=== PATIENT | female | born 2000 | race Two or more races ===

== ENCOUNTER 2019-11-28 00:26 | Emergency (ER) | payer BC, OTHER | END 2019-11-28 01:05 | disposition left against medical advice (07) | LOC: ER 00:26 | DX: Z53.29 Procedure and treatment not carried out because of patient's decision for other reasons (principal); R07.81 Pleurodynia; M79.641 Pain in right hand; M79.642 Pain in left hand ==

== ENCOUNTER 2019-11-28 19:45 | Emergency (ER) | payer BC, OTHER ==
[2019-11-28] MEDS ORDERED: ONDANSETRON HCL INJ/PF 4 MG/2 ML SDV IV ONE (20:40)
[2019-11-28] MEDS ORDERED: NORMAL SALINE 1000 ML 1,000 ML IV ONE ×2 (20:40→22:53)
[2019-11-28] MEDS ORDERED: FENTANYL CITRATE INJ/PF 100 MCG/2 ML AMPUL IV ONE ×2 (20:40→22:53)
[2019-11-28 20:45] LABS: ALBUMIN 3.7 g/dL (3.5-5.0); ALKALINE PHOSPHATASE 89 U/L (38-126); ANION GAP 13 (5-19); ASPARTATE AMINO TRANSFERASE 14 U/L (14-36); BILIRUBIN,DIRECT 0.1 mg/dL (0.0-0.4); BILIRUBIN,TOTAL 0.9 mg/dL (0.2-1.3); BLOOD UREA NITROGEN 14 mg/dL (7-20); CALCIUM 9.6 mg/dL (8.4-10.2); CARBON DIOXIDE 25 mmol/L (22-30); CHLORIDE 96 mmol/L (98-107); GLUCOSE 104 mg/dL (75-110); POTASSIUM 3.7 mmol/L (3.6-5.0)
[2019-11-28 20:47] LABS: HEMATOCRIT 36.5 % (36.0-47.0); HEMOGLOBIN 12.2 g/dL (12.0-15.5); MEAN CORPUSCULAR HEMOGLOBIN 28.1 pg (27.0-33.4); MEAN CORPUSCULAR HGB CONC 33.4 g/dL (32.0-36.0); MEAN CORPUSCULAR VOLUME 84 fl (80-97); PLATELET COUNT 650 10^3/uL (150-450); RED BLOOD COUNT 4.34 10^6/uL (3.72-5.28); RED CELL DISTRIBUTION WIDTH 16.4 % (11.5-14.0); WHITE BLOOD COUNT 20.6 10^3/uL (4.0-10.5)
--- NOTE | 2019-11-28 20:49 | ER Document Report ---
ED GI/ - General Chief Complaint: Abdominal Pain Stated Complaint: ABDOMINAL PAIN Time Seen by Provider: 11/28/19 20:33 Primary Care Provider: LESLEE RM MD [Primary Care Provider] - Follow up as needed Notes: CHIEF COMPLAINT: Abdominal pain and vomiting HPI: 19-year-old female with history of Crohn's who is on Remicade presenting for abdominal pain with vomiting. Patient states it started with the vomiting episodes yesterday which have continued through today. Began having right upper quadrant abdominal pain under the ribs and in the flank region yesterday as well that has been constant. Also complaining of left lower quadrant abdominal pain. Patient states with her Crohn's she normally has discomfort in the lower abdomen not in the upper abdomen. No shortness of breath but hurts in the right upper quadrant region when she takes a deep breath in. Has not had a cough or recent fever. Does complain of some discomfort with urination. No definitive fevers at home ROS: See HPI - all other systems were reviewed and are otherwise negative Constitutional: no fever Eyes: no drainage, no blurred vision ENT: no runny nose, no sore throat Cardiovascular: + chest pain Resp: no SOB, no cough GI: + vomiting, no diarrhea, + abdominal pain : + dysuria Integumentary: no rash Allergy: no hives Musculoskeletal: no extremity pain or swelling Neurological: no numbness/tingling, no weakness MEDICATIONS: I agree with the patient medications as charted by the RN. ALLERGIES: I agree with the allergies as charted by the RN. PAST MEDICAL HISTORY/PAST SURGICAL HISTORY: Reviewed and agree as charted by RN. SOCIAL HISTORY: Reviewed and agree as charted by RN. FAMILY HISTORY: No significant familial comorbid conditions directly related to patient complaint EXAM: Reviewed vital signs as charted by RN. CONSTITUTIONAL: Alert and oriented and responds appropriately to questions. Well-appearing; well-nourished appears moderately uncomfortable HEAD: Normocephalic; atraumatic EYES: PERRL; Conjunctivae clear, sclerae non-icteric ENT: normal nose; no rhinorrhea; moist mucous membranes; pharynx without lesions noted, no uvula edema or deviation, no tonsillar hypertrophy, phonation normal NECK: Supple without meningismus; non-tender; no cervical lymphadenopathy, no masses CARD: RRR; no murmurs, no clicks, no rubs, no gallops; symmetric distal pulses RESP: Normal chest excursion without splinting or tachypnea; breath sounds clear and equal bilaterally; no wheezes, no rhonchi, no rales, pulse oximetry 99% on room air not hypoxic ABD/GI: Normal bowel sounds; non-distended; soft, moderate tenderness in the right upper quadrant and left lower quadrant on palpation with guarding, no rebo und, no palpable organomegaly or masses. BACK: The back appears normal and is non-tender to palpation, there is mild right CVA tenderness EXT: Normal ROM in all joints; non-tender to palpation; no cyanosis, no effusions, no edema SKIN: Normal color for age and race; warm; dry; good turgor; no acute lesions noted NEURO: Moves all extremities equally; Motor and sensory function intact PSYCH: The patient's mood and manner are appropriate. Grooming and personal hygiene are appropriate. MDM: 19-year-old female with Crohn's with vomiting right upper quadrant pain also with left lower quadrant pain. Actively vomiting in the ER appears moderately uncomfortable. Initial screening labs were obtained by nursing lab lactic given her Remicade use. Will treat patient's pain dehydration and vomi ting. She will need CT imaging to evaluate for acute Crohn's flare, cholecystitis, other intra-abdominal surgical or infectious pathologies TRAVEL OUTSIDE OF THE [place] IN LAST 30 DAYS: No - Related Data Allergies/Adverse Reactions: No Known Allergies Allergy (Unverified 02/07/15 15:56) Past Medical History - Social History Smoking Status: Never Smoker Frequency of alcohol use: None Drug Abuse: None Family History: None Patient has homicidal ideation: No - Immunizations Immunizations up to date: Yes Hx Diphtheria, Pertussis, Tetanus Vaccination: Yes Physical Exam - Vital signs Vitals: Temp 98.1 F 11/28/19 19:55 Course - Re-evaluation Re-evalutation: 11/28/19 22:53 I received a call from the reading radiologist patient with loculated fluid throughout the lower abdomen cannot definitively see the appendix to rule out an appendiceal rupture but may be gynecologic as well. Multiple loculated areas of fluid with some possible air trapping. Discussed with the patient she is n.p.o. have placed a call to Dr. Ray surgery to discuss patient. [facility] for her Crohn's 11/28/19 22:[address] Gillis, Attending 11/28/19 23:[address] Ray the surgicalist. He is reviewing the CT and does not see definitive appendicitis. 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 Dias as patient will likely need transfer to a center where they take care of Crohn's disease as they do not do that here. Patient will likely need transfer to [facility] as that is likely where her paper machine supervisor is. I will attempt to call Dr. Dias initially. 11/28/19 23:35 2nd call out to HIRO Breaux for patient. if no call back will call medicine service at [facility]. 11/28/19 23:45 Patient is now febrile. Will give Tylenol for fever. Will give Zosyn as well given the question of intra-abdominal infection issues although the surgical list here believes that this is related to her Crohn's 11/28/19 23:47 have not yet heard from Dr. Dias, spoke with HIRO Umanzor. discussed labs/CT findings. Can admit to the hospitalist service down at [facility] and they will consult on the patient 11/29/19 00:[address] Dias, he indicates that Zosyn is a good choice for the patient and they will anticipate consult from the hospitalist service at [facility] when it arrives to evaluate the patient further 11/29/19 00:[address] Charlie García, Hospitalist at [facility]. Case, labs, CT imaging, vital signs were discussed. Patient accepted to PCU bed under Dr. Wilfredo Trimble. - Vital Signs Vital signs: Temp Pulse Resp BP Pulse Ox 102.8 F H 119 H 20 129/69 H 100 11/28/19 23:46 11/28/19 23:46 11/28/19 23:46 11/28/19 23:46 11/28/19 23:46 - Laboratory Result Diagrams: 11/28/19 19:48 11/28/19 19:48 Laboratory results interpreted by me: 11/28/19 11/28/19 11/28/19 19:48 19:48 20:50 WBC 20.6 H RDW 16.4 H Plt Count 650 H Seg Neuts % (Manual) 90 H Lymphocytes % (Manual) 5 L Monocytes % (Manual) 0 L Abs Neuts (Manual) 19.6 H Abs Monocytes (Manual) 0.0 L Sodium 133.6 L Chloride 96 L Lipase 17.2 L Urine Protein 100 H Urine Ketones 80 H Urine Bilirubin SMALL H Ur Leukocyte Esterase MODERATE H Discharge - Discharge Clinical Impression: Intra-abdominal abscess Fever Qualifiers: Fever type: unspecified Qualified Code(s): R50.9 - Fever, unspecified Exacerbation of Crohn's disease Qualifiers: Digestive disease complication type: with abscess Qualified Code(s): K50.914 - Crohn's disease, unspecified, with abscess Condition: Fair Disposition: [facility] Referrals: LESLEE RM MD [Primary Care Provider] - Follow up as needed
[2019-11-28 21:17] LABS: APPEARANCE,URINE CLOUDY; BILIRUBIN,URINE SMALL (NEGATIVE); COLOR,URINE AMBER; GLUCOSE, URINE NEGATIVE (NEGATIVE); KETONES,URINE 80 mg/dL (NEGATIVE); LEUKOCYTE ESTERASE,URINE MODERATE (NEGATIVE); NITRITE,URINE NEGATIVE (NEGATIVE); PROTEIN,URINE 100 mg/dL (NEGATIVE); URINE SPECIFIC GRAVITY 1.034; UROBILINOGEN,URINE NEGATIVE mg/dL (<2.0)
[2019-11-28 21:33] LABS: BAND NEUTROPHILS % (MANUAL) 5 % (3-5); BASOPHILS % (MANUAL) 0 % (0-2); EOSINOPHILS % (MANUAL) 0 % (0-6); LYMPHOCYTES % (MANUAL) 5 % (13-45); MONOCYTES % (MANUAL) 0 % (3-13); SEGMENTED NEUTROPHILS % (MAN) 90 % (42-78); TOTAL CELLS COUNTED 100
[2019-11-28 21:35] LABS: ANISOCYTOSIS 1+; PLATELET COMMENT INCREASED
[2019-11-28 21:39] LABS: SCHISTOCYTES SLIGHT
[2019-11-28] MEDS ORDERED: CEFTRIAXONE 1 GM/D5W RTU 1 GM/50 ML RTUPB IV ONE (21:58)
--- NOTE | 2019-11-28 22:38 | RADIOLOGY REPORT (SQ) ---
EXAM DESCRIPTION: CT ABDOMEN PELVIS WITH IV CONTRAST COMPLETED DATE/TME: 11/28/2019 20:40 CLINICAL HISTORY: 19 years, Female, ruq llq pain COMPARISON: None. TECHNIQUE: 564 Images stored on PACS. All CT scanners at this facility use dose modulation, iterative reconstruction, and/or weight based dosing when appropriate to reduce radiation dose to as low as reasonably achievable (ALARA). [facility]: Dose Right [facility]: CareDose [facility]: Dose Right [facility]: Teradose 4D [facility]: [employer] LIMITATIONS: None. FINDINGS: Limited evaluation of the lung bases is unremarkable. Osseous structures are grossly intact. The liver, spleen, adrenal glands, pancreas, kidneys are unremarkable. The gallbladder is present. A normal appendix is not present. Near the base of the cecum there is a poorly defined area of increased soft tissue density, inflammation and phlegmon which extends into the pelvis. Complex, loculated fluid collections in the pelvis containing internal air bubbles are suspicious for areas of loculated abscess. Adjacent thick-walled loops of large and small bowel are present. Urinary bladder is not distended however there is urinary bladder wall thickening, likely reactive. IMPRESSION: Severe inflammatory change and phlegmon in the pelvis with poorly defined complex fluid collections worrisome for areas of abscess formation. There are adjacent, thick-walled loops of both large and small bowel as well as diffuse wall thickening of the urinary bladder. A normal appendix is not present. Findings could reflect appendiceal rupture with associated inflammation and abscess formation. However, other etiologies including gynecologic abnormalities such as ruptured complex cyst formation with abscess, and/or tubo-ovarian abscess formation with inflammation are also considered. In addition, given the degree of bowel wall thickening, inflammatory bowel disease with subsequent abscess formation is another possibility TECHNICAL DOCUMENTATION: Quality ID # [id number]: Final reports with documentation of one or more dose reduction techniques (e.g., Automated exposure control, adjustment of the mA and/or kV according to patient size, use of iterative reconstruction technique) copyright 2011 [employer] All Rights Reserved
--- NOTE | 2019-11-28 22:57 | RADIOLOGY REPORT (SQ) ---
EXAM DESCRIPTION: XR CHEST 1 VIEW COMPLETED DATE/TME: 11/28/2019 20:50 CLINICAL HISTORY: 19 years, Female, right rib pain COMPARISON: None. NUMBER OF VIEWS: 1 TECHNIQUE: Portable chest LIMITATIONS: None. FINDINGS: The heart size is normal. The lungs are clear. There is no pneumothorax IMPRESSION: Negative chest copyright 2011 [employer]- All Rights Reserved
[2019-11-28] MEDS ORDERED: ACETAMINOPHEN 325 MG TABLET PO ONE (23:44)
[2019-11-28] MEDS ORDERED: PIPERACILLIN/TAZOBACTAM 3.375 GM VIAL IV ONE (23:46)
[2019-11-29] MEDS ORDERED: FENTANYL CITRATE INJ/PF 100 MCG/2 ML AMPUL IV ONE (00:04)
[2019-11-29] MEDS ORDERED: MORPHINE SULFATE 10 MG/ML INJ IV ONE (01:39)
[2019-11-29 03:43] VITALS: BP 131/69
== END 2019-11-29 03:43 | disposition short-term general hospital (02) ==
LOC: ER 19:45
DX: T81.40XA Infection following a procedure, unspecified, initial encounter (principal); K65.1 Peritoneal abscess; K50.914 Crohn's disease, unspecified, with abscess; R11.10 Vomiting, unspecified; R10.11 Right upper quadrant pain; R07.81 Pleurodynia; R10.32 Left lower quadrant pain; R30.9 Painful micturition, unspecified; Z79.899 Other long term (current) drug therapy; X58.XXXA Exposure to other specified factors, initial encounter
CPT/HCPCS: 96376; 99285; 96361; 96375; 96365; 96367; 36415; 87040; 83605; 83690; 85025; 81025; 80053; 81001; 71045; 74177; J3010 ×2; J2270; J2405; J7030; J0696; J2543